=== PATIENT | female | born 1965 | race Caucasian/White ===

== ENCOUNTER 2023-12-31 05:05 | Day surgery (SDC) | payer OTHER, SELFPAY ==
[2023-12-30 23:50] VITALS: BP 120/67
[2023-12-31] VITALS (13 sets, daily range): BP systolic 101–132; BP diastolic 58–81; BMI 25.1
--- NOTE | 2023-12-31 01:57 | ED.GENMED ---
History of Present Illness
General
Chief Complaint: Abdominal Pain
Source: patient
Exam Limitations: none
Time Seen by Provider: 12/31/23 01:20
Nursing documentation reviewed up to this point in time: agreed with
History of Present Illness
History of Present Illness:
Patient is a pleasant 58-year-old female who comes in with complaints of right upper abdominal pain rating into her chest. Patient reports she the pain is associated with nausea and vomiting. Patient reports the pain started around 10:30 PM this
evening and has been constant. She reports she had 2 normal bowel movements and is passing gas. Patient has a history of bilateral mastectomy due to breast cancer and a hysterectomy. The patient reports that she has recently lost about 50 pounds
due to taking a new weight loss medication.
Past History
Past History
ED Past Medical History: Cancer
ED Past Surgical History: Gynecological and Other (Bilateral mastectomy)
Social History
Tobacco: Other
Alcohol: Other
Drug: None
Personal:
Living: with family
Employment: Other
Family History
Family History: Other
Review of Systems
Review of Systems
Allergies reviewed?: Yes
All Other Systems: ROS reviewed and negative except as documented in HPI and ROS
Constitutional: Reports no symptoms
EENT: Reports no symptoms
Respiratory: Reports no symptoms
Cardiac: Reports no symptoms
ABD/GI: Reports abdominal pain, nausea and vomiting
: Reports no symptoms
Musculoskeletal: Reports no symptoms
Skin: Reports no symptoms
Neurological: Reports no symptoms
Endocrine: Reports no symptoms
Hematologic/Lymphatic: Reports no symptoms
Psychiatric: Reports no symptoms
Phy Exam
Physical Exam
Physical Exam:
Physical Exam
General: Patient appears uncomfortable
Neck: supple. no meningeal signs. normal psoterior pharynx
Heart: s1/s2 regular rate and rhythm, no murmur. equal radial pulses.
Lungs: no acute respiratory distress. clear bilaterally
Abdomen: Soft, right upper quadrant tenderness. Positive Christopher sign. No pulsatile mass
Neuro: alert and oriented. no focal neurological deficits
Skin: no rash
Psychiatric: well kept. interactive and cooperative
Extremities: no edema. no calf tenderness. negative homans. good distal pulses
Course
Orders/Labs/Results
Orders:
Orders
12/30/23 23:54
EKG [Electrocardiogram (*1)] Urgent
Reason for Study: Abdominal Pain
12/30/23 23:55
EKG- Treatment ONCE
12/31/23 01:20
US Abdomen Complete/Upper Urgent
Comment:
Reason For Exam: upper ab pain, nausea, vomiting
12/31/23 01:56
Ondansetron Injectable [Zofran] 4 mg IV NOW STA
12/31/23 01:57
HYDROmorphone [Dilaudid] 0.5 mg IV NOW STA
12/31/23 02:18
Complete Blood Count/With Diff Urgent
Comprehensive Metabolic Panel Urgent
Lipase Urgent
Troponin I Urgent
Abnormal Lab Results
12/31/23
02:18
WBC 11.0 H 10^3/uL
(4.8-10.8)
Absolute Neuts (auto) 9.0 H 10^3/uL
(1.4-6.5)
Neutrophils % 81.2 H %
(42.2-75.2)
Lymphocytes % 14.2 L %
(20.5-51.1)
Creatinine 1.2 H mg/dL
(0.6-1.0)
Glucose 108 H mg/dl
(70-99)
Calcium 11.0 H mg/dl
(8.4-10.2)
Lipase 337 H U/L
(23-300)
12/31/23 02:18
08/01/24 02:18
Vital Signs
Initial and Last Documented VS:
Initial Vital Signs
Temp Pulse Resp BP
97.6 F 91 16 120/67
12/30/23 23:50 12/30/23 23:50 12/30/23 23:50 12/30/23 23:50
Last Documented Vital Signs
Temp Pulse Resp BP
97.6 F 91 16 120/67
12/30/23 23:50 12/30/23 23:50 12/30/23 23:50 12/30/23 23:50
MDM/Problems Addressed
Differential Diagnosis Includes:
Acute cholecystitis, biliary colic, small bowel obstruction
MDM/Problems Addressed:
Patient presents with acute right upper abdominal pain
Chronic conditions affecting care: Previous abdomnial surgery
Acute Exacerbation and/or Progression of Chronic Illness: Previous abdomnial surgery
*Radiology
Radiology exam reviewed: radiology read reviewed
*Pulse Oximetry
Patient hypoxic: no
*EKG
Interpreted by ED Provider?: NA
*Dehydrating Press Operator Interpretation
Rate: Dehydrating Press Operator- N/A
*Critical Care Note
Total Time (30-74mins, 75-104mins- exclusive of procedures): Not Applicable
Data Reviewed
Source: patient and spouse
Patient Management
Social determinants of health affecting care: Living situation and Strong social support
Update Note
Update Note:
3:05 AM patient's pain is improved but she still having right upper abdominal pain. Ultrasound confirms nonmobile gallstone in the neck of a moderately distended gallbladder. Case discussed with Dr. Michael Ramirez who agreed to admit the patient
onto his service. Nurse practitioner made aware of admission. Patient agreeable to plan
ED Attending Note
-
Portions of this chart may have been created with voice recognition software.� Occasional wrong word or��sound alike� substitutions may have occurred due to the inherent limitations of voice recognition software.
Discharge Plan
Departure
Patient Disposition: Admit
Date of Disposition: 12/31/23
Time of Disposition: 03:06
Admit to: Med/Surg
Presentation/result/management discussed w/ accepting MD/DO: Dr Kat
Patient with high blood pressure during this ER visit?: Yes
Condition: Good
Covid-19: Not Applicable
Discharge Problem:
Intractable right upper quadrant abdominal pain, Symptomatic gallbladder disease
Referrals:
Angelina Paula PA-C [Family Provider] -
Interventions
Interventions:
*Risk Screen - Suicide Last Done: 12/31/23 01:00
*Neglect/Abuse Screening Last Done: 12/31/23 01:00
Discharge Date and Time
Print Language: CITIZEN OF [place]
[2023-12-31] MEDS: ZOFRAN 4 MG IV (02:19)
[2023-12-31] MEDS: DILAUDID 0.5 MG IV ×2 (02:19→04:48)
[2023-12-31 02:27] LABS: % Basophils 0.3 % (0-2); % Eosinophils 0.5 % (0-6); % Immature Granulocytes 0.4 % (0-0.5); % Lymphocytes 14.2 % (20.5-51.1); % Monocytes 3.4 % (1.7-9.3); % Neutrophils 81.2 % (42.2-75.2); Absolute Eosinophils 0.1 10^3/uL (0-0.7); Absolute Lymphocytes 1.6 10^3/uL (1.2-3.4); Absolute Monocytes 0.4 10^3/uL (0.1-0.6); Hematocrit 39.9 % (37.0-47.0); Hemoglobin 14.2 g/dL (12.0-16.0); Mean Corp Hgb Conc. 35.6 g/dL (33.0-37.0); Mean Corpuscular Hgb 30.3 pg (27.0-31.0); Mean Corpuscular Volume 85.3 fL (81.0-99.0); Mean Platelet Volume 10.3 fL (7.4-10.4); Nucleated Red Blood Cells % 0 %; Platelet Count 299 10^3/uL (130-400); Red Blood Cell Count 4.68 10^6/uL (4.20-5.40); Red Cell Dist. Width 13.1 % (11.5-14.5)
[2023-12-31 02:38] LABS: ALT (SGPT) 14 U/L (0-35); AST (SGOT) 19 U/L (14-36); Albumin 4.7 g/dl (3.5-5.0); Alkaline Phosphatase 57 U/L (38-126); Blood Urea Nitrogen 17 mg/dl (7-17); Carbon Dioxide 24 mmol/L (22-30); Chloride 105 mmol/L (98-107); Glucose 108 mg/dl (70-99); Lipase 337 U/L (23-300); Potassium 3.6 mmol/L (3.5-5.1); Sodium 139 mmol/L (135-145); Total Bilirubin 0.7 mg/dl (0.2-1.3); Total Protein 7.1 g/dl (6.3-8.2); eGFR 51.82
[2023-12-31 02:49] LABS: Troponin I < 0.012 ng/ml
--- NOTE | 2023-12-31 03:51 | HPS.HSE ---
Addendum entered and electronically signed by Michael Kat MD 12/31/23 09:25:
Patient seen and examined independently of admitting nurse practitioner. Agree with documented history and physical consistent with my current follow-up examination evaluation at this time.
HPI: 58-year-old female who developed the acute onset of abdominal pain yesterday evening awakening her from sleep. Pain localized to the right upper quadrant. Nausea with multiple episodes of vomiting there is radiation to the substernal region.
This prompted emergency department evaluation. Workup negative for acute cardiac or pulmonary etiologies. Positive for gallstones and probable acute calculus cholecystitis.
Medical history notable for history of breast cancer, hypertension, hypothyroidism, history of obesity with 50 pound weight loss on Zepbound
Past surgical history notable for bilateral mastectomy with TRAM flap, hysterectomy
AF, VSS but low-grade sinus tachycardia
NAD AAOx3
ABD: Soft, slightly distended, tender to palpation localizing right upper quadrant some voluntary guarding
White blood cell count 11, liver function testing within normal limits. Lipase slightly elevated 337.
Ultrasound with large gallstone in the neck or gallbladder. Mobile. No biliary ductal dilation. Gallbladder prominent but without wall thickening or clear pericholecystic edema.
Assessment/plan:
Reviewed with patient history and workup as outlined above which is consistent with acute calculus cholecystitis with intractable abdominal pain and nausea.
We discussed treatment options with patient in agreement to proceed with cholecystectomy.
Laparoscopic cholecystectomy with possible cholangiogram was reviewed in detail including operative technique utilizing diagrams and alternative management options. The potential benefits and risks of the procedure were reviewed in detail, including
but not limited to infectious or wound healing complications, bleeding, bile leak, injury to biliary tree, iatrogenic injury to surrounding viscera and post cholecystectomy syndrome. Reviewed the typical postoperative recovery.
Any of the patient's concerns or questions were fully addressed and informed consent was obtained.
Original Note:
Family Physician
-
Family Physician: Angelina Paula
Chief Complaint
-
Abdominal pain
History of Present Illness
A 58 year old female with PMH of HTN, hypothyroidism, anxiety, and breast cancer. Present in ER with a complain of abdominal pain that started around 10:30 pm, patient started at the RUQ and lower RT side of chest. Described pain as constant,
pressure pain, and associated with nausea and vomiting x 6 or more. Denied diarrhea, constipation, chills, SOB, chest pain or any other symptoms. Patient reported that she has been taking a new weight loss medication (Tirzepatide) and recently lost
around 50 pounds.
Medical History
Past Medical History
Past Medical History: Reports Cancer, HTN and Hypothyroidism
Past Surgical History: Reports Gynocological (B/L mastectomy, hysterotomy )
Social History
Tobacco: Non-smoker
Alcohol: None
Drug: None
Personal:
Living: With Family
Employment: Other
Family History
Family History: Not pertinent
Allergies / Home Medications
Allergies reflects when Allergies were last updated in [facility].
Home Medications with original date entered in [facility]
Allergy/Medication List:
Patient Allergies
Allergy/AdvReac Type Severity Reaction Status Date / Time
No Known Allergies Allergy Unverified 12/30/23 23:50
Home Medications Table - record
�Medication �Instructions �Recorded �Confirmed
escitalopram oxalate 10 mg tablet 10 mg PO DAILY 12/31/23 12/31/23
(Lexapro)
levothyroxine 75 mcg tablet 75 mcg PO DAILY 12/31/23 12/31/23
metformin 500 mg tablet,extended 500 mg PO QPM 12/31/23 12/31/23
release 24 hr
spironolactone 100 mg tablet 100 mg PO DAILY 12/31/23 12/31/23
tirzepatide (weight loss) 7.5 7.5 mg SC .EVERYOTHER WEEK 12/31/23 12/31/23
mg/0.5 mL subcutaneous pen
injector (Zepbound)
Review of Systems
-
A 12 point ROS was completed and negative except as noted: Yes
Respiratory: Reports No Symptoms
Cardiac: Reports No Symptoms
Abdomen/GI: Reports Abdominal Pain (RUQ), Nausea and Vomiting (x6 )
: Reports No Symptoms
Physical Exam
Vital Signs
Vital Signs
Temp Pulse Resp BP
97.6 F 91 16 120/67
12/30/23 23:50 12/30/23 23:50 12/30/23 23:50 12/30/23 23:50
Physical Exam
General: No Apparent Distress
Respiratory: Clear
Cardiac: Regular Rhythm
GI: Soft, Non Distended, Normal Bowel Sounds and Tender (RUQ)
Neuro: Awake and AO x 3
Psych: Calm
Laboratory Results
-
12/31/23 02:18
12/31/23 02:18
Laboratory Results
Total Bilirubin 0.7 mg/dl (0.2-1.3) 12/31/23 02:18
AST 19 U/L (14-36) 12/31/23 02:18
ALT 14 U/L (0-35) 12/31/23 02:18
Alkaline Phosphatase 57 U/L (38-126) 12/31/23 02:18
Troponin I < 0.012 ng/ml 12/31/23 02:18
Lipase 337 U/L (23-300) H 12/31/23 02:18
Data Reviewed
-
Lab Data: Discussed with Patient
Impression/Plan
-
Abdomen U/S shows 2.3 cm nonmobile gallstone in the neck of a moderately distended gallbladder. No gallbladder wall thickness or pericholecystic fluids. Neg sonographic Christopher`s. Common bile duct measures 4.9mm.
IMPRESSION: Symptomatic gallbladder disease/ cholelithiasis
PLAN:
Admit/observation/ Dr. Kat (surgical services)
NPO
IVF
antiemetics as needed
analgesics as needed
Cr is 1.2 on admission will continue with IVF and will recheck lab in am.
Hypothyroidism
On Levothyroxine 70mcg daily.
HTN
On Spironolactone 100 mg daily.
Anxiety
On Lexapro 10mg daily
DVT prophylaxis
SCDs
Code status
Full code.
[2023-12-31] MEDS: NSS 1000 IV ×3 (03:59→11:39)
[2023-12-31 06:54] LABS: Blood Urea Nitrogen 15 mg/dl (7-17); Calcium 9.6 mg/dl (8.4-10.2); Carbon Dioxide 22 mmol/L (22-30); Chloride 108 mmol/L (98-107); Estimated Creatinine Clearance 56 ml/min; Glucose 102 mg/dl (70-99); Potassium 3.9 mmol/L (3.5-5.1); Sodium 138 mmol/L (135-145); eGFR > 60.00
--- NOTE | 2023-12-31 08:40 | EDRN ---
the OR called this RN and verbal report was given
--- NOTE | 2023-12-31 09:19 | W.SUR.PREOP ---
Pre-Operative Surgical Note
-
I have examined this patient prior to the performance of the scheduled procedure.
The patient's condition is unchanged from the time of the current History and
Physical and the patient is able to undergo the scheduled procedure.
--- NOTE | 2023-12-31 10:35 | W.IMMPOSTOP ---
Addendum entered and electronically signed by Michael Kat MD 12/31/23 10:50:
#[id number]
Original Note:
Surgical Immed Post Op Note
-
Primary Surgeon: North
Assisting Surgeon: Donn MOORE
Pre-op Diagnosis: Acute calculus cholecystitis
Post-op Diagnosis: Acute calculus cholecystitis
Procedure Performed: Laparoscopic cholecystectomy
Anesthesia Type: GETA +0.25% Marcaine with epi
Specimen / Cultures: Gallbladder/none
Estimated Blood Loss: 8 mL
Complications: None immediate
Operative Findings: Tensely distended gallbladder with edema. Patchy gangrenous changes of gallbladder wall. Large gallstone impacted in neck of gallbladder. Cystic duct identified and controlled with hemoclips. Anterior main cystic artery and
prominent posterior cystic artery branch as well individually controlled with hemoclips. Gallbladder removed off liver bed intact and extracted at epigastric port site. Significant gastric distention noted -orogastric tube placed for decompression
with about 250 mL of gastric fluid contents decompressed. Likely reflective of both acute illness and effects of tirzepatide with reduced gastric motility.
Plan: Start clear liquid diet postop with dietary advancement as tolerated if no nausea or vomiting
Continue Zosyn postop during hospitalization but no need for discharge on antibiotics
Routine postoperative supportive care
Would hold tirzepatide 3-4 weeks post op.
Updated via phone call post op
[2023-12-31] MEDS: ZOSYN IV (11:13)
--- NOTE | 2023-12-31 11:56 | PTCARENOTE ---
Pt arrived to 2S in bed. Full assessment completed. IVF infusing per order. Abdominal incisions C/D/I, glued and ADAM. Pt denies pain at this time. Bed locked and in the lowest position, safety maintained. Oriented to room and call grier.
[2023-12-31] MEDS: ZOSYN 50 IV ×2 (14:07→20:07)
[2023-12-31] MEDS: LOVENOX 40 MG SC (17:32)
[2024-01-01] MEDS: ZOSYN 50 IV ×2 (01:24→09:04)
[2024-01-01 03:41] VITALS: BP 128/66
[2024-01-01] MEDS: SYNTHROID 75 MCG PO (05:12)
[2024-01-01 07:07] VITALS: BP 108/55
--- NOTE | 2024-01-01 07:30 | W.PN.GS2 ---
Today's Communication / Plan
-
Discharge home
Follow-up in outpatient 2 to 3 weeks
Assessment / Plan
-
58-year-old female s/p laparoscopic cholecystectomy POD #1 for acute onset of abdominal pain with nausea and vomiting. Workup was positive for gallstone. Probable acute calculus cholecystitis.
Acute cholecystitis
-S/p laparoscopic cholecystectomy
-Tolerating low-fat diet, advancement as tolerated
-Discontinue IV fluids
-Continue as needed pain meds
-Plan to discharge home today
-Follow-up in in 2 to 3 weeks outpatient
All questions answered
Time Spent
Total Time Spent with Patient (in minutes): 15
Subjective Data
-
Date of Service: January 01, 2024
Significant improvement in abdominal pain. Denies nausea/vomiting. Able to pass flatus.
Objective Data
-
Intake and Output
12/31/23 01/01/24 01/02/24
06:59 06:59 06:59
Intake Total 2180 / 2180
Balance 2180 / 2180
Intake:
Oral fluids 720 / 720
IV fluids (Total) 1310 / 1310
Normosol 50 / 50
IV piggybacks 150 / 150
Other:
Number of approximated MODERATE 2
amounts of urine
Number of approximated LARGE 1
amounts of urine
Vital Signs
Temp Pulse Resp BP Pulse Ox
98.0 F 78 14 128/66 98
01/01/24 03:41 01/01/24 03:41 01/01/24 03:41 01/01/24 03:41 01/01/24 03:41
Lab Results
12/31/23 02:18
12/31/23 06:16
Calcium 9.6 mg/dl (8.4-10.2) 12/31/23 06:16
Total Bilirubin 0.7 mg/dl (0.2-1.3) 12/31/23 02:18
AST 19 U/L (14-36) 12/31/23 02:18
ALT 14 U/L (0-35) 12/31/23 02:18
Alkaline Phosphatase 57 U/L (38-126) 12/31/23 02:18
Total Protein 7.1 g/dl (6.3-8.2) 12/31/23 02:18
Albumin 4.7 g/dl (3.5-5.0) 12/31/23 02:18
Physical Exam
-
General: Well-developed, no apparent distress
Abdomen: Soft, minimal distention, tenderness over the incision sites, no guarding, no rebound.
[2024-01-01] MEDS: LEXAPRO 10 MG PO (09:04)
[2024-01-01] MEDS: ALDACTONE 100 MG PO (09:04)
[2024-01-01 09:17] LABS: Hepatitis C Antibody Negative (Negative)
--- NOTE | 2024-01-01 09:30 | CM ---
Patient seen at bedside with . Patient stated that she lives with in a 2 story home with no DME and independent of ADL's and IADL's. Patient stated that her PCP is monica from [facility]. Patient uses the [facility] in
[place] on [address]. Patient states that she is anticipating discharge today and patient status is SDC not OBS per orders. CM will continue to follow for discharge planning needs.
Plan; home with no needs anticipated.
[2024-01-01 11:32] VITALS: BP 118/68
== END 2024-01-01 12:16 | disposition home or self-care (01) ==
LOC: PACU 05:05
PROVIDERS: Nurse Practitioner Family; ATTENDING PHYSICIAN Surgery; EMERGENCY PHYSICIAN Emergency Medicine; FAMILY PHYSICIAN Physician Assistant Medical
DX: K80.12 Calculus of gallbladder with acute and chronic cholecystitis without obstruction (principal); K80.00 Calculus of gallbladder with acute cholecystitis without obstruction
CPT/HCPCS: 47562; 88304; 76700; 80048; 80053; 83690; 84484; 85025; 86803; 93005; 96361; 96374; 96375; 99285